=== PATIENT | female | born 1975 | race Caucasian/White ===

== ENCOUNTER 2020-08-01 09:18 | Outpatient (CLI) | payer OTHER, SELFPAY ==
--- NOTE | 2020-08-25 17:51 | WPDHOMESLEEP ---
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 She also stops breathing at night. She never feels rested. She has recently gained weight. She has a difficult time waking up during the morning. She wakes up throughout the night. She frequently snores and is loud enough that others complain about it. She never wakes at night with heartburn, belching or coughing. She never wakened from sleep feeling short of breath. She occasionally has trouble sleeping with a cold. She does not gasp for breath at night. She frequently has breathing problems at night observed by others. She does not sweat excessively at night or notices her heart pounding or beating irregularly at night. She frequently falls asleep during the day, never involuntarily and never while driving. She does not fall asleep during physical effort. She does not have loss of muscle tone with strong emotion. She occasionally has daytime difficulties due to excessive sleepiness. She does not feel paralyzed on waking or falling asleep and does not have vivid dreamlike scenes upon awakening or falling asleep. She is never a free to go to sleep. She does not have nightmares. She rarely remembers her dreams. She does not have racing thoughts. She rarely feels sad or depressed. She frequently feels anxious. She rarely has muscular tension. She does not notice parts of her body jerking. She does not kick at night and does not have crawling or aching feelings in her legs at night. She denies any kind of leg pain during the night. She does not have morning jaw pain. She does not grind her teeth during sleep. She rarely is bothered by pain during the day. She is not awakened by pain at night, does not wake up feeling stiff in the morning with sore achy muscles and pain in the neck and spine. She has fatigue, memory problems and headaches. She is exhausted all the time. Normal bedtime 930 to 10:30 p.m. falling asleep within 20 minutes. She wakes at most once at night to urinate and is able to return to sleep within a few minutes. Her uses a noise machine at night for his tinnitus, she has adapted to it but this does not help her sleep. On weekends she takes a 3 hour nap occasionally. naps are not refreshing. She is drowsy in the morning for 3 hours or longer. Habits: never smoked tobacco. Caffeine 2 per day. Social drinker at parties maybe 1 or 2 a week on weekends. [facility] Past Medical History Medical History (Updated 08/26/20 @ 13:46 by Orquidea Zhu MD) Abnormal fasting glucose BMI 37.0-37.9, adult Essential (primary) hypertension Hypersomnia Mixed hyperlipidemia Right lateral epicondylitis Surgical History Surgical History Hx of appendectomy 10/2017 Family History Family History Mother Hypertension Patient's mother is in good health Family history of pancreatic disease Father Acute myocardial infarction Grandparent Acute myocardial infarction, Onset Age: 50 Family history of pancreatic cancer Family history of congestive heart failure Social History Social History Smoking status: Never smoker Alcohol intake: current Medications Home Medications Medication Instructions Recorded Confirmed Type alprazolam 0.25 mg tablet 0.25 mg PO TID PRN 02/06/20 07/15/20 History escitalopram oxalate 10 mg tablet 10 mg PO DAILY #90 tablet 02/06/20 07/15/20 Rx fluticasone propionate 50 1 spray NASAL BID ml 02/06/20 07/15/20
[2020-08-26 13:49] VITALS: BMI 36.5
== END 2020-08-01 09:19 | disposition home or self-care (01) ==
LOC: ANHCSM 09:19
PROVIDERS: Family Provider Family Medicine; PCP Family Medicine; Visit Provider Family Medicine
DX: G47.10 Hypersomnia, unspecified (principal); G47.33 Obstructive sleep apnea (adult) (pediatric)
CPT/HCPCS: 95806

== ENCOUNTER → 2020-09-13 01:56 | Outpatient (CLI) | payer OTHER, SELFPAY ==
[2020-09-13 18:53] LABS: SARS-CoV-2 RNA PCR Negative
== END ==
PROVIDERS: PCP Family Medicine; Visit Provider Internal Medicine Critical Care Medicine
DX: R68.89 Other general symptoms and signs (principal); Z20.822 Contact with and (suspected) exposure to COVID-19
CPT/HCPCS: C9803; U0003; U0005

== ENCOUNTER 2020-09-16 09:09 | Outpatient (CLI) | payer OTHER, SELFPAY ==
--- NOTE | 2020-10-03 19:39 | WPDSLEEPSTUD ---
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 She never feels rested. She has recently gained weight. She has a difficult time waking up during the morning. She wakes up throughout the night. She frequently snores and is loud enough that others complain about it. She never wakes at night with heartburn, belching or coughing. She never wakened from sleep feeling short of breath. She occasionally has trouble sleeping with a cold. She does not gasp for breath at night. She frequently has breathing problems at night observed by others. She does not sweat excessively at night or notices her heart pounding or beating irregularly at night. She frequently falls asleep during the day, never involuntarily and never while driving. She does not fall asleep during physical effort. She does not have loss of muscle tone with strong emotion. She occasionally has daytime difficulties due to excessive sleepiness. She does not feel paralyzed on waking or falling asleep and does not have vivid dreamlike scenes upon awakening or falling asleep. She is never a free to go to sleep. She does not have nightmares. She rarely remembers her dreams. She does not have racing thoughts. She rarely feels sad or depressed. She frequently feels anxious. She rarely has muscular tension. She does not notice parts of her body jerking. She does not kick at night and does not have crawling or aching feelings in her legs at night. She denies any kind of leg pain during the night. She does not have morning jaw pain. She does not grind her teeth during sleep. She rarely is bothered by pain during the day. She is not awakened by pain at night, does not wake up feeling stiff in the morning with sore achy muscles and pain in the neck and spine. She has fatigue, memory problems and headaches. She is exhausted all the time. Normal bedtime 930 to 10:30 p.m. falling asleep within 20 minutes. She wakes at most once at night to urinate and is able to return to sleep within a few minutes. Her uses a noise machine at night for his tinnitus, she has adapted to it but this does not help her sleep. On weekends she takes a 3 hour nap occasionally. naps are not refreshing. She is drowsy in the morning for 3 hours or longer. Habits: never smoked tobacco. Caffeine 2 per day. Social drinker at parties maybe 1 or 2 a week on weekends. [facility] Past Medical History Medical History (Updated 08/26/20 @ 17:41 by Alexandre Wong MD) Abnormal fasting glucose BMI 37.0-37.9, adult Essential (primary) hypertension Hypersomnia Mixed hyperlipidemia Right lateral epicondylitis Surgical History Surgical History Hx of appendectomy 10/2017 Family History Family History Mother Hypertension Patient's mother is in good health Family history of pancreatic disease Father Acute myocardial infarction Grandparent Acute myocardial infarction, Onset Age: 50 Family history of pancreatic cancer Family history of congestive heart failure Social History Social History Smoking status: Never smoker Alcohol intake: current Medications Home Medications Medication Instructions Recorded Confirmed Type alprazolam 0.25 mg tablet 0.25 mg PO TID PRN 02/06/20 07/15/20 History escitalopram oxalate 10 mg tablet 10 mg PO NADJA
[2020-10-03 20:44] VITALS: BMI 36.5
== END 2020-09-16 09:10 | disposition home or self-care (01) ==
LOC: ANHCSM 09:09
PROVIDERS: PCP Family Medicine; Visit Provider Family Medicine
DX: G47.33 Obstructive sleep apnea (adult) (pediatric) (principal)
CPT/HCPCS: 95811

== ENCOUNTER 2020-11-12 07:41 | Outpatient (CLI) | payer OTHER, SELFPAY ==
--- NOTE | ~2020-11-12 | MM_ITS ---
EXAMINATION: MM screening emmanuel BI w dominic HISTORY: Screening mammogram TECHNIQUE: Craniocaudal and mediolateral oblique 3-D tomosynthesis images were obtained and synthetic 2-D images were generated. CAD analysis was submitted and interpreted. COMPARISON: 08/11/2012 BREAST PARENCHYMAL COMPOSITION: The breasts are heterogeneously dense, which may obscure small masses . FINDINGS: There is no evidence of suspicious mass, calcification, or architectural distortion to sugg est malignancy in either breast. There has been no suspicious interval change. IMPRESSION: 1. No mammographic evidence of malignancy. 2. Recommend routine screening mammography in one year. BI-RADS Category 1: Negative Reviewed, dictated and finalized at location A.
== END 2020-11-12 07:42 | disposition home or self-care (01) ==
LOC: ANHIMG 07:43
PROVIDERS: PCP Family Medicine; Visit Provider Student in an Organized Health Care Education/Training Program
DX: Z12.31 Encounter for screening mammogram for malignant neoplasm of breast (principal)
CPT/HCPCS: 77063; 77067

== ENCOUNTER 2021-02-11 16:00 | Outpatient (RCR) | payer OTHER, SELFPAY ==
--- NOTE | 2021-01-12 09:42 | PTOPEVAL ---
PHYSICAL THERAPY EVALUATION Thank you for referring Jolene Shetty to [facility].? Jolene was evaluated for the dx of right shoulder pain/impingement. The patient is scheduled to be seen for therapy?2 x/week for 4 weeks. Please review, sign, date and return this plan of care SALVADOR. I agree with and certify that the following plan of care is medically necessary. Referring Physician Date Attending Provider: Gilberto Duncan MD *PT Outpatient Evaluation Start: 01/12/21 08:32 Freq: Status: Active Protocol: Document 01/12/21 08:32 MLV (Rec: 01/12/21 09:40 MLV [id number]) Therapy Assessment Status Assessment Status Evaluation Evaluation Information Problem Diagnosis right shoulder pain/ impingement Onset 1 year Cause none Additional Evaluation Detail The patient has had right shoulder pain that began years ago and has been off and on, without injury. The pain has gotten worse, affecting lifestyle tasks in the last year. 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 The patient does yoga, with pain during some tasks. The patient does house and yard work when off. The patient has a decreased sleep pattern due to shoulder pain. The patient wants to decrease pain for sleep, lifting/carrying tasks. 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 Needs elbow surgery per the MD and the patient is considering having it worked on this fall. Diagnostic Tests X-Rays For This Problem Yes Previous Treatments Previous Treatments For This Problem no PT for anything; had an injection of the shoulder recently Pain Assessment Timing of Pain Assessment Timing of Pain Assessment Assessment Pain Scale Pain Scale Used Numeric (1 - 10) Self Report Pain Assessment Right Shoulder(s) Reported Pain Level 2 Pain Description Burning,Shooting Pain Frequency Acute Other Pain Description 5-6 to sleep [facility] [place]
--- NOTE | 2021-02-11 16:59 | PTOPEVAL ---
PHYSICAL THERAPY DISCHARGE Thank you for referring Jolene Shetty to [facility].? The patient has completed 6 visits for the dx of right shoulder pain/impingement. Goals are met. DC PT. Please review, sign, date and return this plan of care SALVADOR. I agree with and certify that the following plan of care. Referring Physician Date Attending Provider: Gilberto Duncan MD *PT Outpatient Discharge Start: 01/12/21 08:32 Freq: Status: Active Protocol: Document 02/11/21 16:12 MLV (Rec: 02/11/21 16:38 MLV [id number]) Therapy Assessment Status Assessment Status Assessment Status Discharge Evaluation Information Problem Diagnosis right shoulder pain/ impingement Onset 1 year Cause none Additional Evaluation Detail The patient feels she is about 95% better and feels she can manage any symptoms through her exercises and posturing. The patient is sleeping w/o pain and can lift w/o limits. The patient is using her posture techniques for when she is at a computer and she can feel an improvement Pain Assessment Timing of Pain Assessment Timing of Pain Assessment Assessment Pain Scale Pain Scale Used Numeric (1 - 10) Self Report Pain Assessment Right Shoulder(s) Reported Pain Level 0 Other Pain Description 0 with exercises/stretching Pain Score Pain Score 0: Self Report Interventions Used Pain Relief Interventions Used By Exercise Patient Other Alleviating Interventions ibuprofen prn but infrequently needed Upper Extremity Range of Motion General Upper Extremity Range of Motion Reason Not Measured WNL/Left,WNL/Right Gross Upper Extremity Range of Motion able to reach behind her back Comments to hook her bra w/o any discomfort Upper Extremity Muscle Strength Testing General Upper Extremity Strength Reason Not Measured WNL/Left,WNL/Right Gross Upper Extremity Strength Comments no pain with testing Posture Posture Sitting Position Posture Evaluation View all Head/C-Spine Posture Excess Extension,Forward Head Thoracic Spine Posture Neutral Lumbar Spine Posture Neutral Shoulder Posture Neutral Scapula Posture (L) Neutral,(R) Neutral Arm Posture (L) Neutral,(R) Neutral Additional Posture Comments corrects posture w/o cueing Palpation Assessment Palpation
== END 2021-02-12 11:58 | disposition home or self-care (01) ==
LOC: ANHPT 16:00
PROVIDERS: PCP Family Medicine; Visit Provider Orthopaedic Surgery
DX: M25.511 Pain in right shoulder (principal); G89.29 Other chronic pain
CPT/HCPCS: 97014; 97110; 97140; 97162; G0283

== ENCOUNTER 2021-05-20 07:38 | Outpatient (CLI) | payer OTHER, SELFPAY ==
--- NOTE | 2021-05-20 08:00 | ECG_ITS ---
Measurements Intervals [place] Rate: 66 P: 31 NH: 174 QRS: -29 QRSD: 100 T: 105 QT: 413 QTc: 434 Interpretive Statements SINUS RHYTHM POSSIBLE LEFT ATRIAL ENLARGEMENT POOR R WAVE PROGRESSION, ANTERIOR LEADS INFERIOR INFARCT, AGE INDETERMINATE ST-T WAVE ABNORMALITY IN HIGH LATERAL LEADS- CONSIDER ISCHEMIA ABNORMAL ECG Electronically Signed On 05-20-2021 8:20:22 MINE DEPUTY by Cb Blackwell D.O.
[2021-05-20 08:32] LABS: Anion Gap 9 mmol/L (8-16); Blood Urea Nitrogen 13 mg/dL (7-17); Calcium 9.5 mg/dL (8.4-10.2); Carbon Dioxide 30 mmol/L (22-30); Chloride 100 mmol/L (98-107); Estimated Glomerular Filt Rate > 60; Glucose 110 mg/dL (65-110); Potassium 4.3 mmol/L (3.4-5.0); Sodium 139 mmol/L (137-145)
== END 2021-05-20 07:39 | disposition home or self-care (01) ==
LOC: ANHSURGERY 07:43
PROVIDERS: Anesthesiology; PCP Family Medicine; Visit Provider Orthopaedic Surgery
DX: Z01.818 Encounter for other preprocedural examination (principal); I10 Essential (primary) hypertension; Z79.899 Other long term (current) drug therapy; R94.31 Abnormal electrocardiogram [ECG] [EKG]
CPT/HCPCS: 36415; 80048; 93005

== ENCOUNTER 2021-05-22 11:00 | Outpatient (CLI) | payer OTHER, SELFPAY ==
--- NOTE | 2021-05-22 11:07 | EST_ITS ---
Patient Info Name: Jolene Shetty Age: 45 years : 1975 Gender: Female Ht: 68 in Wt: 250 lbs BSA: 2.38 m2 Exam Date: 05/22/2021 11:17 AM Exam Location: [facility] Stress Patient Status: Outpatient Admit Date: 05/22/2021 Staff Ordering Physician: Alexandre oWng MD Attending Provider: Alexandre Wong MD Exercise Technologist: Dorinda Smith RDCS Exercise Physician: Cb Blackwell DO Exam Type: CA stress test treadmill Study Info Indications R94.31 - Abnormal electrocardiogram ECG EKG A treadmill exercise stress test was performed. Summary 1. 1. Negative Aubrey exercise stress test for ischemic ST changes by ECG criteria. 2. 2. Mildly reduced functional capacity, achieving 8.9 METs of workload. 3. 3. Baseline hypertension. 4. 4. Appropriate HR response to exercise. 5. 5. Appropriate HR recovery at 1 minute post exercise. 6. 6. No imaging with stress testing. 7. 7. Patient informed of the above results. Protocol: Aubrey Stress ECG Details Stage: REST Duration (min): 4 min : 59 sec Speed (mph): 0.0 Grade (%): 0 HR (bpm): 77 SBP (mmHg): 150 DBP (mmHg): 97 METS: --- Stage: REST Duration (min): 8 min : 53 sec Speed (mph): 0.0 Grade (%): 0 HR (bpm): 94 SBP (mmHg): 150 DBP (mmHg): 97 METS: --- Stage: STAGE 1 Duration (min): 1 min : 0 sec Speed (mph): 1.7 Grade (%): 10 HR (bpm): 119 SBP (mmHg): 150 DBP (mmHg): 97 METS: --- Stage: STAGE 1 Duration (min): 2 min : 0 sec Speed (mph): 1.7 Grade (%): 10 HR (bpm): 126 SBP (mmHg): 150 DBP (mmHg): 97 METS: --- Stage: STAGE 1 Duration (min): 3 min : 0 sec Speed (mph): 1.7 Grade (%): 10 HR (bpm): 133 SBP (mmHg): 181 DBP (mmHg): 96 METS: --- Stage: STAGE 2 Duration (min): 1 min : 0 sec Speed (mph): 2.5 Grade (%): 12 HR (bpm): 145 SBP (mmHg): 181 DBP (mmHg): 96 METS: --- Stage: STAGE 2 Duration (min): 2 min : 0 sec Speed (mph): 2.5 Grade (%): 12 HR (bpm): 154 SBP (mmHg): 194 DBP (mmHg): 96 METS: --- Stage: STAGE 2 Duration (min): 3 min : 0 sec Speed (mph): 2.5 Grade (%): 12 HR (bpm): 163 SBP (mmHg): 194 DBP (mmHg): 96 METS: --- Stage: STAGE 3 Duration (min): 1 min : 0 sec Speed (mph): 3.4 Grade (%): 14 HR (bpm): 171 SBP (mmHg): 207 DBP (mmHg): 99 METS: --- Stage: STAGE 3 Duration (min): 1 min : 0 sec Speed (mph): 3.4 Grade (%): 14 HR (bpm): 171 SBP (mmHg): 207 DBP (mmHg): 99 METS: --- Stage: RECOVERY Duration (min): 0 min : 59 sec Speed (mph): 0.0 Grade (%): 0 HR (bpm): 155 SBP (mmHg): 179 DBP (mmHg): 98 METS: --- Stage: RECOVERY Duration (min): 1 min : 59 sec Speed (mph): 0.0 Grade (%): 0 HR (bpm): 130 SBP (mmHg): 179 DBP (mmHg): 98 METS: --- Stag
== END 2021-05-22 11:01 | disposition home or self-care (01) ==
LOC: ANHCARD 11:02
PROVIDERS: PCP Family Medicine; Visit Provider Family Medicine
DX: R94.31 Abnormal electrocardiogram [ECG] [EKG] (principal)
CPT/HCPCS: 93017

== ENCOUNTER 2021-05-25 00:16 | Day surgery (SDC) | payer OTHER, SELFPAY ==
[2021-05-18 13:49] VITALS: BMI 38.4
--- NOTE | 2021-05-18 14:22 | PC.NURSE ---
Report to the Outpatient Waiting Room, entrance under the green pavilion located off [facility], at time 0930 on date 05-25-21. OR Time: 1130. - You and your visitor will be asked a series of questions to screen for COVID 19 for your protection. - A mask is required within the hospital. - Only one visitor is allowed at this time. Patient visitors will be guided where to wait when not with patient. Preoperative COVID Testing Requirements: No COVID Test needed if: (proof is required; if not received patient will have Rapid Test prior to entry) - Patient has received COVID Vaccine at least 14 days prior to procedure date or - Patient has positive COVID test result within last 90 days of surgery date. COVID Test needed if above criteria is not met If not COVID vaccinated a COVID test must be conducted within 72 hours of surgery and patient is asked to isolate self from time of testing until procedure. You will go to the [facility] for your COVID testing. The [facility] site is located at the corner of [address] [facility]. You will only be called if COVID results are positive and your surgeon may reschedule your elective surgery date. Patients may have clear liquids (water, carbonated beverages, clear teas, apple juice) until 3 hours prior to surgery with a maximum of 20 ounces. 0830 - No food from midnight until time of surgery - Infants may have breast milk until 4 hours before surgery, formula 6 hours prior to surgery. - Children will be allowed to drink immediately following surgery. If applicable, please bring a bottle or sippy cup to assist with drinking. Juice, water, soda, and popsicles are readily available. For infants on formula, please bring formula the day of surgery. Pacifiers are allowed. Take the following medications with a SIP of water the morning of surgery: bupropion HCL, tylenol if needed, xanax if needed Medications to discontinue per physician: vitamins and supplements, ibuprofen per Dr. Duncan Date to take last dose 05-22-21 for vitamins and supplements Please no make-up, nail burkinan, hairspray, perfume, deodorant, or body powder the day of surgery. No jewelry (including any body piercings) or valuables the day of surgery, leave them at home. Please take a shower or bath the night before, or the morning of, surgery with an antibacterial soap. Wear comfortable, loose fitting clothing. Children are encouraged to wear pajamas. - Jewelry must be removed prior to entering the operating room. Rings and piercings that are not removed may be cut off. - The hospital will not accept responsibility for valuables. - Please leave all valuables, including medications, at home the day of surgery. If you are going home after surgery, a licensed emt driver must drive you home. - NO public transportation without another adult. - We recommend that an adult stay with you for 24 hours following discharge. - We also recommend that you do not drive, make important decision, drink alcoholic beverages, or take any drugs that were not prescribed by your health care provider for at least 24 hours after your discharge time. For Pediatric surgeries, we recommend two adults accompany the child home (only one inside the building at this time). One visitor may be present with you the day of surgery Follow any additional instructions given to you from your surgeon. Telephone instructions given to Jolene Shetty and asked if any additional questions and then verbalized understanding. Patient advised to call surgeon office or pre surgery nurse liaison [phone] if any additional questions.
[2021-05-25] VITALS (7 sets, daily range): BP systolic 118–137; BP diastolic 75–112; PULSE 64–79; RESP 12–20; TEMP 36–37; O2SAT 95–100
--- NOTE | 2021-05-25 09:59 | WPDHPUPDATE1 ---
History and Physical Update Update Date/Time: 05/25/21 09:59 History and Physical has been reviewed, including an updated exam of the patient. There are NO changes in the patient's condition. Risks, benefits, and alternatives have been discussed and questions answered. Patient agrees to proceed with procedure.
[2021-05-25] MEDS: KETOROLAC 15 MG/ML VIAL (*BKC) IV PUSH (10:01)
[2021-05-25] MEDS: LACTATED RINGERS 1,000 ML 30 ML IV CONT (10:01)
[2021-05-25] MEDS: ACETAMINOPHEN 500 MG TABLET 1000 MG PO (10:02)
--- NOTE | 2021-05-25 10:10 | WPDANESEPPF ---
Anes - Initial Pre Proc Eval Procedure: Operation Date: 05/25/21 11:30 Proposed Procedures p Right Lateral Epicondyle Debridement - Gilberto Duncan MD Date/Time: 05/25/21 10:10 Surgeon: Gilberto Duncan MD Pre Op Diagnosis: right lateral epicondylitis Patient Data Age: 45 Gender: F Height: 1.75 m Weight: 115.3 kg Last Vital Signs Temp 37.0 C 05/25/21 09:33 Pulse 69 05/25/21 09:33 Resp 18 05/25/21 09:33 BP 137/112 H 05/25/21 09:33 Pulse Ox 100 05/25/21 09:33 Allergies Allergy/AdvReac Type Severity Reaction Status Date / Time Penicillins Allergy Intermediate Hives Verified 05/25/21 10:10 Home Medications Medication Instructions Recorded Confirmed Type fluticasone propionate 50 1 spray NASAL BID PRN ml 02/06/20 05/25/21 History mcg/actuation nasal spray,suspension spironolactone 50 mg tablet 50 mg PO BID #180 tablet 12/11/20 05/25/21 Rx alprazolam 0.25 mg tablet 0.25 mg PO TID PRN #90 tablet 02/12/21 05/25/21 Rx bupropion HCl 150 mg 24 hr tablet, 150 mg PO QAM #90 tablet 04/28/21 05/25/21 Rx extended release acetaminophen [Tylenol Arthritis] 650 mg PO Q8H PRN 05/18/21 05/25/21 History amlodipine 2.5 mg PO HS 05/18/21 05/25/21 History cholecalciferol (vitamin D3) 25 mcg PO DAILY 05/18/21 05/25/21 History [Vitamin D3] escitalopram oxalate [Lexapro] 10 mg PO HS 05/18/21 05/25/21 History xvcbpneihuip-Fi-wgkz-minerals 1 tablet PO DAILY 05/18/21 05/25/21 History [Women's One Daily] Patient hx anesthesia problems: none Family hx anesthesia problems: other (mother heart issues) Results Review: All pre-operative results and documents have been reviewed as part of the pre-operative evaluation. [facility] Past Medical History Medical History Abnormal EKG (05/20/21) inferior Q-waves with poor R-wave progression and ST T-wave changes laterally on the EKG 05/20/2021 with family history of father with RI at 46 Abnormal fasting glucose BMI 37.0-37.9, adult BMI 39.0-39.9,adult Chronic depression CPAP (continuous positive airway pressure) dependence Essential (primary) hypertension Hypersomnia Medial epicondylitis, left elbow Mixed hyperlipidemia Pain in right shoulder Right lateral epicondylitis Skin tags, multiple acquired UTI (urinary tract infection) Surgical History Surgical History Hx of appendectomy 10/2017 Family History Family History Mother Hypertension Patient's mother is in good health Family history of pancreatic disease Father Acute myocardial infarction Grandparent Acute myocardial infarction, Onset Age: 50 Family history of pancreatic cancer Family history of congestive heart failure Social History Social History Smoking status: Never smoker Second hand tobacco smoke exposure: No Alcohol intake: current Drinks per week: 3 Alcohol use details: selzers/beer Substance use: never Substance use type: does not use Living arrangements: with family Spiritual care concerns: No Anes - Eval Final PreProcedure Day of Procedure 05/25/21 10:10 Patient weight: obese Heart: regular rate and rhythm Lungs: clear to auscultation Airway: Mallampati scale class II Neurological: alert and oriented Last oral intake: >/= 8 hours ASA classification: III Emergent: no Anesthetic plan: proceed Anesthesia type and monitoring: general LMA and standard monitoring Results Review: All pre-operative results and documents have been reviewed as part of the pre-operative evaluation. Informed Consent: The patient's anesthetic plan and its attendant risks and benefits were discussed with the patient/family/POA. Questions were solicited and answers provided to the satisfaction of the patient/family/POA.
[2021-05-25] MEDS: ceFAZolin 2 GM/D5W 50 ML 2 GM/50 ML BAG IVPB (10:32)
--- NOTE | 2021-05-25 11:21 | P.OP_ITS ---
Procedure Note - Detailed Date of Procedure 05/25/21 Pre-op Diagnosis right lateral epicondylitis Post-op Diagnosis same Procedure Performed Right elbow lateral epicondyle common extensor origin debridement with partial epicondylectomy Surgeon Gilberto Duncan MD Cooling Room Attendant Fawn Reilly Anesthesia general Description of Procedure The patient was identified and proper site identified. She was taken to the operating room transferred to the or table placing her supine taking care to pad her torso and extremities. After general anesthetic induction and intubation, nonsterile tourniquet placed high on the right arm. Right upper extremity was prepped and draped usual sterile fashion. Several cc of 1% lidocaine and epinephrine solution was infiltrated into the subcutaneous tissue along the tendinous attachment of the common extensor origin right elbow. Extremity was exsanguinated tourniquet was inflated to 250 millimeters of mercury remaining up for about 22 minutes. Longitudinal incision was made over the tendinous origin. Subcutaneous tissue was sharply dissected full-thickness down to the forearm fascia. This was released over the tendon to allow for access of the lateral epicondyle. The tendon was elevated off the lateral epicondyle an inverted T- fashion and then the degenerative tissue rim removed from within it using the edge of the scalpel. Prominent lateral epicondyle was also removed with a rongeur. The wound was irrigated with sterile saline. Tendon edges reapproximated with 3-0 Monocryl suture as the deeper layers of the subcu. Skin reapproximated with three 0 V lock and tissue adhesive. Sterile dressing was applied. Tourniquet was released. She tolerated the procedure well. She was awakened, extubated taken to recovery area in stable condition. There were no known intraoperative complications. Estimated blood loss was negligible. She r eceived perioperative antibiotics. Estimated Blood Loss 1 Tourniquet Time 22 Drains No Packing No Pathology none sent Complications No immediate complications Condition stable Disposition PACU
[2021-05-25] MEDS: fentaNYL CITRATE INJ (*CRX) 100 MCG/2 ML VIAL 25 MCG IV PUSH ×2 (11:50→12:00)
[2021-05-25] MEDS: oxyCODONE HCL (*CRX) 5 MG TAB IR PO (12:48)
== END 2021-05-25 13:45 | disposition home or self-care (01) ==
PROVIDERS: PCP Family Medicine; Visit Provider Orthopaedic Surgery
PROC: (CPT 24110; principal; 2021-05-25 11:30)
DX: M77.11 Lateral epicondylitis, right elbow (principal); I10 Essential (primary) hypertension; E78.2 Mixed hyperlipidemia; F32.9 Major depressive disorder, single episode, unspecified; E66.9 Obesity, unspecified; Z68.37 Body mass index [BMI] 37.0-37.9, adult
CPT/HCPCS: 24358; 36415; 80048; 93005; A4565; A9270; J0690; J1100; J1885; J2250; J2270; J2405; J2704; J3010; J7120

== ENCOUNTER 2021-12-28 10:17 | Outpatient (CLI) | payer OTHER, SELFPAY ==
--- NOTE | ~2021-12-28 | MM_ITS ---
EXAMINATION: MM screening [facility] BI w dominic HISTORY: Screening TECHNIQUE: Craniocaudal and mediolateral oblique 3-D tomosynthesis images were obtained and synthetic 2-D images were generated. CAD analysis was submitted and interpreted. COMPARISON: Comparison to multiple prior studies sequentially, with oldest reviewed study dated 08/21. BREAST PARENCHYMAL COMPOSITION: There are scattered areas of fibroglandular density. FINDINGS: There is no evidence of suspicious mass, calcification, or architectural distortion to sugg est malignancy in either breast. There has been no suspicious interval change. IMPRESSION: 1. No mammographic evidence of malignancy. 2. Recommend routine screening mammography in one year. BI-RADS Category 1: Negative Reviewed, dictated and finalized at location A.
== END 2021-12-28 10:18 | disposition home or self-care (01) ==
LOC: ANHIMG 10:19
PROVIDERS: PCP Family Medicine; Visit Provider Obstetrics & Gynecology
DX: Z12.31 Encounter for screening mammogram for malignant neoplasm of breast (principal)
CPT/HCPCS: 77063; 77067

== ENCOUNTER 2023-01-03 07:14 | Outpatient (CLI) | payer OTHER, SELFPAY ==
--- NOTE | ~2023-01-03 | MM_ITS ---
EXAMINATION: MM screening [facility] BI w dominic HISTORY: Screening mammogram TECHNIQUE: Craniocaudal and mediolateral oblique 3-D tomosynthesis images were obtained and synthetic 2-D images were generated. CAD analysis was submitted and interpreted. COMPARISON: 12/28/2021, 11/12/2020, 08/21/2012 BREAST PARENCHYMAL COMPOSITION: The breasts are heterogeneously dense, which may obscure small masses . FINDINGS: No suspicious mass, calcification, or architectural distortion are identified in either triston ast to suggest malignancy. There has been no suspicious interval change. IMPRESSION: 1. No mammographic evidence of malignancy. 2. Recommend routine screening mammography in one year. BI-RADS Category 1: Negative Reviewed, dictated and finalized at location A.
== END 2023-01-03 07:15 | disposition home or self-care (01) ==
LOC: ANHIMG 07:16
PROVIDERS: PCP Family Medicine; Visit Provider Obstetrics & Gynecology
DX: Z12.31 Encounter for screening mammogram for malignant neoplasm of breast (principal)
CPT/HCPCS: 77063; 77067

== ENCOUNTER 2024-01-06 07:46 | Outpatient (CLI) | payer OTHER, SELFPAY ==
--- NOTE | ~2024-01-06 | MM_ITS ---
EXAMINATION: MM screening [facility] BI w dominic HISTORY: Screening mammogram TECHNIQUE: Craniocaudal and mediolateral oblique 3-D tomosynthesis images were obtained and synthetic 2-D images were generated. CAD analysis was submitted and interpreted. COMPARISON: 01/03/2023, 12/28/2021, 11/12/2020 BREAST PARENCHYMAL COMPOSITION:Not Dense. There are scattered areas of fibroglandular density. FINDINGS: There is an increasing 1.3 cm lower, inner left breast mass. No suspicious interval change of the right breast. IMPRESSION: Increasing 1.3 cm lower, inner left breast mass. Spot compression views and ultrasound are recommend ed for further evaluation. BI-RADS Category 0: Incomplete: Needs additional imaging evaluation. Reviewed, dictated and finalized at location . IMPRESSION: Increasing 1.3 cm lower, inner left breast mass. Spot compression views and ul trasound are recommended for further evaluation. BI-RADS Category 0: Incomplete: Needs additional imaging evaluation.
== END 2024-01-06 07:47 | disposition home or self-care (01) ==
LOC: ANHIMG 07:48
PROVIDERS: PCP Family Medicine; Visit Provider Obstetrics & Gynecology
DX: Z12.31 Encounter for screening mammogram for malignant neoplasm of breast (principal); R92.8 Other abnormal and inconclusive findings on diagnostic imaging of breast
CPT/HCPCS: 77063; 77067

== ENCOUNTER 2024-01-19 11:55 | Outpatient (CLI) | payer OTHER, SELFPAY ==
--- NOTE | ~2024-01-19 | MMUS_ITS ---
EXAMINATION: MM diagnostic [facility] LT w dominic, US breast LT limited HISTORY: Follow-up left breast mass TECHNIQUE: Additional 3-D tomosynthesis images of the left breast were performed and synthetic 2-D im ages were generated. CAD analysis was submitted and interpreted. High resolution Limited left breast ultrasound was performed. COMPARISON: Comparison to multiple prior studies sequentially, with oldest reviewed study dated 11/12. BREAST PARENCHYMAL COMPOSITION: Dense: The breasts are heterogeneously dense, which may obscure small masses FINDINGS: MAMMOGRAPHIC FINDINGS: There is a mass in the lower central aspect of the left breast with layering milk of calcium, consist ent with benign fibrocystic disease. There are no suspicious calcifications or architectural distorti on. ULTRASOUND: Limited left breast ultrasound: At 7:00, 6 cm from the nipple there is a minimally complicated cyst m easuring 1.1 cm, corresponding to the mammographic finding. No sonographic evidence for malignancy. IMPRESSION: 1. No evidence for malignancy in the left breast. Benign finding. 2. Routine yearly screening mammogram and regular clinical breast examination are recommended. BI-RADS CATEGORY 2 - BENIGN FINDINGS Reviewed, dictated and finalized at location B. IMPRESSION: 1. No evidence for malignancy in the left breast. Benign finding. 2. Routine yearly screening mammogram and regular clinical breast examination a re recommended. BI-RADS CATEGORY 2 - BENIGN FINDINGS
== END 2024-01-19 11:56 | disposition home or self-care (01) ==
LOC: ANHIMG 11:56
PROVIDERS: PCP Family Medicine; Visit Provider Obstetrics & Gynecology
DX: N63.20 Unspecified lump in the left breast, unspecified quadrant (principal)
CPT/HCPCS: 76642; 77061; 77065; G0279

== ENCOUNTER 2025-01-09 01:57 | Day surgery (SDC) | payer OTHER, SELFPAY ==
[2024-12-14 15:35] VITALS: BMI 39.5
--- OUTSIDE RECORDS SUMMARY | 2025-01-09 02:01 | XMS_ITS | Clinical Summary ---
Author Organization [facility] Address [address] [place] [address] Care Team Providers Care Coding Clerks Supervisor Name Role Phone Alexandre Wogn MD Primary Care Provider [phone] [facility] [employer],non-owned Affiliates and Associated Physician Practices is amultiple site organization consisting of ambulatory clinics and hospital sitesin [place], [place], [place] and [place]. This disclosure is being madepursuant to the Care Everywhere program and may not contain all information available regarding this patient. Last updated 18.[facility] [employer] Social History Tobacco Use Types Packs/Day Years Used Date Smoking Tobacco: Never Assessed Comments Unknown Sex and Gender Information Value Date Recorded Sex Assigned at Not on file Legal Sex Female 9:07 AM CDT Gender Identity Not on file Sexual Orientation Not on file Plan of Treatment Health Maintenance Due Date Last Done Comments COLOGUARD (AGES 45-75) - COL ON CA SCREENING 1974 COLON MONITORING 1974 COLONOSCOPY - COLON CA SCREENING 1974 CT COLONOGRAPHY - COLON CA SCREENING 1974 Colorectal Cancer Screening 1974 FIT - COLON CA SCREENING 1974 FLEX SIG - COLON CA SCREENING 1974 LIPID TESTING 1974 MAMMOGRAM 1974 HIV SCREENING 1989 HEPATITIS C SCREENING 11/14/1992 DTAP/TDAP/TD VACCINES (1 - Tdap) 1993 HEPATITIS B VACCINE (1 of 3 - 19+ 3-dose series) 1993 PAP SMEAR 11/20/1995 COVID-19 VACCINE (1 - 2023-2 5 season) 2024 DEPRESSION SCREENING 07/04/2024 PNEUMOCOCCAL VACCINE 50+ (1 of 1 - PCV) 2024 ZOSTER VACCINE (1 of 2) 2024 INFLUENZA VACCINE (#1) 2025 HIB VACCINE Aged Out No longer eligi ble based on patient's age to complete this topic HPV VACCINE Aged Out No longer eligi ble based on patient's age to complete this topic MENINGOCOCCAL (Group B) VACC INE SHARED DECISION-MAKING Aged Out No longer eligibl e based on patient's age to complete this topic MENINGOCOCCAL GROUPS A/C/Y/W VACCINE Aged Out No longer eligible b ased on patient's age to complete this topic Insurance [facility] Care Teams Coding Clerks Supervisor Relationship Specialty Start Date End Date Alexandre Wong MD PCP - General 10/13/17
--- OUTSIDE RECORDS SUMMARY | 2025-01-09 02:01 | XMS_ITS | Encounter Summary ---
Author Organization [facility] Address [address] [place] [address] Care Team Providers Care Family Practice Doctor Name Role Phone Alexandre Wong MD Primary Care Provider [phone] Encounter Details Date Type Department Care Team (Late st Contact Info) Description 05/05/2022 Lab Requisition [facility] DermPath Lab [address] [facility], [facility] [place] [id number] Kylie Jamil MD [address] [facility] [address] [place] [address] Social History Tobacco Use Types Packs/Day Years Used Date Smoking Tobacco: Never Assessed Comments Unknown Sex and Gender Information Value Date Recorded Sex Assigned at Not on file Legal Sex Female 9:07 AM CDT Gender Identity Not on file Sexual Orientation Not on file documented as of this encounter Plan of Treatment Not on file documented as of this encounter Procedures Procedure Name Priority Date/Time Associated Diagnosis Comments DERMATOPATHOLOGY Routine 05/04/2022 12:0 0 AM CDT documented in this encounter Results * DERMATOPATHOLOGY (05/04/2022 12:00 AM CDT) Case Report Dermatopathology Report Case: [id number] Authorizing Provider: Kylie Jamil MD Collected: 05/04/2022 12:00 AM Ordering Location: [facility] DermPath Lab Received: 05/05/2022 06:59 AM Pathologist: Ayla Alva MD Specimen: Skin, left eyelid margin 2 4:22 PM CDT DERMATOPATHOLOGY LABORATORY Final Diagnosis Specimen A. 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 The specimen consists of a shave biopsy measuring [id number]. Jar 0. 4:22 PM CDT DERMATOPATHOLOGY LABORATORY Microscopic Description Specimen A. SKIN, left eyelid margin: Within the dermis, there is a space lined by one to several layers of typical epithelial cells that resemble the lining of the normal sweat duct. Additional deeper sections were obtained and reviewed. 4:22 PM CDT DERMATOPATHOLOGY LABORATORY Disclaimer An external and internal positive and negative controls are appropriate for the histochemical, immunohistochemical and immunofluorescence stain(s) in this case (if any), except where stated explicitly. The performance characteristics of the stain(s) cited in this report were developed and its performance characteristic determined by the Dermatopathology Laboratory at [facility], directed by Dr. Cyndy Alva. These tests need not be, and therefore are not, approved by the [place] Food and Drug Administration. The tests are used for clinical purposes. Billing Codes Specimen Charges Stain Charges 49915 1 2 4:22 PM CDT DERMATOPATHOLOGY LABORATORY Embedded Images 4:22 PM CDT DERMATOPATHOLOGY LABORATORY Pathology/Cytolog y TISSUE SPECIMEN FROM SKIN / Unknown 05/04/2022 05/05/2022 6:59 AM CDT us Kylie Jamil MD LAB - PATHOLOGY/CYTOLOGY ORD ERABLES Final Result DERMATOPATHOLOGY LABORATORY [facility] - Department of Dermatology [facility] Medicine [address] [place] [address], [address] [phone] documented in this encounter Visit Diagnoses Not on filedocumented in this encounter Care Teams Family Practice Doctor Relationship Specialty Start Date End Date Alexandre Wong MD PCP - General 10/13/17 documented as of this encounter
[2025-01-09 06:35] VITALS: BP 139/87; PULSE 74; RESP 16; TEMP 36.8; O2SAT 99
[2025-01-09 06:47] VITALS: BMI 39.2
[2025-01-09 06:49] LABS: BEDSIDEPREGUCG Negative (Negative)
[2025-01-09] MEDS: LACTATED RINGERS 1,000 ML 150 ML IV CONT (06:52)
--- NOTE | 2025-01-09 07:17 | P.PNAN_ITS ---
Anes - Initial Pre Proc Eval Procedure: Operation Date: 01/09/25 07:30 Proposed Procedures p Screening Colonoscopy - Petey Best MD Date/Time: 01/09/25 07:17 Surgeon: Petey Best MD Pre Op Diagnosis: screening colon Patient Data Age: 49 Gender: F Height: 1.73 m Weight: 117.1 kg Last Vital Signs Temp 98.2 F 01/09/25 06:35 Pulse 74 01/09/25 06:35 Resp 16 01/09/25 06:35 BP 139/87 01/09/25 06:35 Pulse Ox 99 01/09/25 06:35 O2 Del Method Room Air 01/09/25 06:35 Allergies Allergy/AdvReac Type Severity Reaction Status Date / Time Penicillins Allergy Intermediate Hives Verified 01/09/25 06:40 Home Medications ?Medication ?Instructions ?Recorded ?Confirmed ?Type fluticasone propionate 50 1 spray intranasal BID PRN 02/06/20 12/14/24 History mcg/actuation nasal seasonal allergies spray,suspension acetaminophen 650 mg 650 mg PO Q8H PRN pain 05/18/21 12/14/24 History tablet,extended release fikivzgfljcy-Kk-trvr-minerals 27 1 tablet PO DAILY 05/18/21 01/09/25 History mg-0.4 mg tablet cholecalciferol (vitamin D3) 25 1,000 unit PO DAILY 09/16/21 01/09/25 History mcg (1,000 unit) tablet (Vitamin D3) tirzepatide (weight loss) See Rx Instructions subcut WEEKLY 05/30/24 01/09/25 History amlodipine 10 mg tablet 10 mg PO DAILY #90 tabs 07/24/24 01/09/25 Rx bupropion HCl 150 mg 24 hr tablet, 150 mg PO QAM #90 tabs 09/21/24 01/09/25 Rx extended release (Wellbutrin XL) escitalopram oxalate 10 mg tablet 10 mg PO DAILY #90 tabs 10/16/24 01/09/25 Rx (Lexapro) spironolactone 50 mg tablet 50 mg PO BID #180 tabs 10/16/24 01/09/25 Rx alprazolam 0.25 mg tablet (Xanax) 0.25 mg PO TID PRN anxiety #90 tabs 11/29/24 12/14/24 Rx Laboratory Tests 01/09/25 06:46 POC Urine HCG, Qual Negative (Negative) Patient hx anesthesia problems: none Family hx anesthesia problems: none Results Review: All pre-operative results and documents have been reviewed as part of the pre- operative evaluation. [facility] Past Medical History Medical History BMI 36.0-36.9,adult Screening for colon cancer Breast mass, left (01/06/24) 1.3 cm mass left breast on mammogram 01/06/2024. Diagnostic mammogram 01/19/2024 with breast ultrasound with fibrocystic changes with no evidence of malignancy. Urinary urgency NAYELI on CPAP Body mass index (BMI) of 40.1 to 44.9 in adult Acute bronchitis COVID-19 (~07/01/22) 2nd episode Breast cancer screening Normal mammogram 01/03/2023.1.3 cm mass inner left breast on 01/06/2024. Diagnostic mammogram and breast ultrasound 01/19/2024 with no evidence of malignancy. Acute non-recurrent maxillary sinusitis COVID-19 (~05/2021) COVID illness after vaccination May, BMI 38.0-38.9,adult Abnormal EKG (05/20/21) inferior Q-waves with poor R-wave progression and ST T-wave changes laterally on the EKG 05/20/2021 with family history of father with [place] at 46 BMI 39.0-39.9,adult Chronic depression CPAP (continuous positive airway pressure) dependence Medial epicondylitis, left elbow Pain in right shoulder Skin tags, multiple acquired UTI (urinary tract infection) Hypersomnia BMI 37.0-37.9, adult Mixed hyperlipidemia Total cholesterol 175, triglycerides 100, HDL 36 and LDL 118 on 01/08/2022. Abnormal fasting glucose Fasting glucose 109 with hemoglobin A1c 5.2 on 01/08/2022. Essential (primary) hypertension Surgical History Surgical History Hx of appendectomy 10/2017 Right lateral epicondylitis Surgical debridement May 25, 2021 Family History Family History Mother Hypertension Patient's mother is in good health Family history of pancreatic disease Father Acute myocardial infarction Grandparent Acute myocardial infarction, Onset Age: 50 Family history of pancreatic cancer Family history of congestive heart failure Social History Social History Smoking status: Never smoker Second hand tobacco smoke exposure: No Alcohol intake: current Drinks per week: 3 Alcohol use details: selzers/beer Substance use: never Substance use type: does not use Living arrangements: with family Spiritual care concerns: No Anes - Eval Final PreProcedure Day of Procedure 01/09/25 07:17 Patient weight: obese Lungs: normal air movement Airway: Mallampati scale class II Neurological: alert and oriented Last oral intake: >/= 8 hours ASA classification: III Emergent: no Anesthetic plan: proceed Anesthesia type and monitoring: general GIVS and standard monitoring Results Review: All pre-operative results and documents have been reviewed as part of the pre- operative evaluation. HTN, NAYELI on CPAP. Informed Consent: The patient's anesthetic plan and its attendant risks and benefits were discussed with the patient/family/POA. Questions were solicited and answers provided to the satisfaction of the patient/family/POA.
--- NOTE | 2025-01-09 07:33 | PM.IMHP ---
H&P: HPI History of Present Illness Date/Time: 01/09/25 07:33 Chief Complaint: screening colonoscopy Narrative: This is the patient's first colonoscopy. There are no GI symptoms and there is no family history of colorectal cancer. Review of Systems Review of Systems: All systems reviewed & are unremarkable except as noted in HPI and below [facility] Past Medical History Medical History BMI 36.0-36.9,adult Screening for colon cancer Breast mass, left (01/06/24) 1.3 cm mass left breast on mammogram 01/06/2024. Diagnostic mammogram 01/19/2024 with breast ultrasound with fibrocystic changes with no evidence of malignancy. Urinary urgency NAYELI on CPAP Body mass index (BMI) of 40.1 to 44.9 in adult Acute bronchitis COVID-19 (~07/01/22) 2nd episode Breast cancer screening Normal mammogram 01/03/2023.1.3 cm mass inner left breast on 01/06/2024. Diagnostic mammogram and breast ultrasound 01/19/2024 with no evidence of malignancy. Acute non-recurrent maxillary sinusitis COVID-19 (~05/2021) COVID illness after vaccination May, BMI 38.0-38.9,adult Abnormal EKG (05/20/21) inferior Q-waves with poor R-wave progression and ST T-wave changes laterally on the EKG 05/20/2021 with family history of father with [place] at 46 BMI 39.0-39.9,adult Chronic depression CPAP (continuous positive airway pressure) dependence Medial epicondylitis, left elbow Pain in right shoulder Skin tags, multiple acquired UTI (urinary tract infection) Hypersomnia BMI 37.0-37.9, adult Mixed hyperlipidemia Total cholesterol 175, triglycerides 100, HDL 36 and LDL 118 on 01/08/2022. Abnormal fasting glucose Fasting glucose 109 with hemoglobin A1c 5.2 on 01/08/2022. Essential (primary) hypertension Surgical History Surgical History Hx of appendectomy 10/2017 Right lateral epicondylitis Surgical debridement May 25, 2021 Family History Family History Mother Hypertension Patient's mother is in good health Family history of pancreatic disease Father Acute myocardial infarction Grandparent Acute myocardial infarction, Onset Age: 50 Family history of pancreatic cancer Family history of congestive heart failure Social History Social History Smoking status: Never smoker Second hand tobacco smoke exposure: No Alcohol intake: current Drinks per week: 3 Alcohol use details: selzers/beer Substance use: never Substance use type: does not use Living arrangements: with family Spiritual care concerns: No Meds Home Medications and Allergies Home Medications ?Medication ?Instructions ?Recorded ?Confirmed ?Type fluticasone propionate 50 1 spray intranasal BID PRN 02/06/20 12/14/24 History mcg/actuation nasal seasonal allergies spray,suspension acetaminophen 650 mg 650 mg PO Q8H PRN pain 05/18/21 12/14/24 History tablet,extended release scjrzplzdcnf-La-bcqk-minerals 27 1 tablet PO DAILY 05/18/21 01/09/25 History mg-0.4 mg tablet cholecalciferol (vitamin D3) 25 1,000 unit PO DAILY 09/16/21 01/09/25 History mcg (1,000 unit) tablet (Vitamin D3) tirzepatide (weight loss) See Rx Instructions subcut WEEKLY 05/30/24 01/09/25 History amlodipine 10 mg tablet 10 mg PO DAILY #90 tabs 07/24/24 01/09/25 Rx bupropion HCl 150 mg 24 hr tablet, 150 mg PO QAM #90 tabs 09/21/24 01/09/25 Rx extended release (Wellbutrin XL) escitalopram oxalate 10 mg tablet 10 mg PO DAILY #90 tabs 10/16/24 01/09/25 Rx (Lexapro) spironolactone 50 mg tablet 50 mg PO BID #180 tabs 10/16/24 01/09/25 Rx alprazolam 0.25 mg tablet (Xanax) 0.25 mg PO TID PRN anxiety #90 tabs 11/29/24 12/14/24 Rx Allergies Allergy/AdvReac Type Severity Reaction Status Date / Time Penicillins Allergy Intermediate Hives Verified 01/09/25 06:40 Vital Signs Vital Signs - 24 hr 01/09/25 06:35 Temperature 98.2 F Pulse Rate 74 Respiratory Rate 16 Blood Pressure 139/87 Pulse Oximetry 99 Oxygen Delivery Room Air Exam Const: General: cooperative and healthy appearing Resp: Effort & Inspection: normal respiratory effort and able to speak in complete sentences Auscultation: clear to auscultation bilaterally Cardio: Rate: regular rate Rhythm: regular rhythm GI: Inspection: normal to inspection GI Palp: No No hepatosplenomegaly present Auscultation: normal bowel sounds Rectal Exam: deferred Skin: General skin exam: normal color Psych: Appearance: grossly normal Mental Status: mental status grossly normal Assessment and Plan Assessment and plan (1) Screening for colon cancer: Code(s): Z12.11 - Encounter for screening for malignant neoplasm of colon Status: Acute Assessment and Plan: The patient is deemed a good candidate for the procedure. Consent signed. Will proceed.
[2025-01-09 07:43] VITALS: BP 110/73; PULSE 79; RESP 20; O2SAT 97
[2025-01-09 07:53] VITALS: BP 124/81; PULSE 66; RESP 21; O2SAT 97
[2025-01-09 08:03] VITALS: BP 120/78; PULSE 62; RESP 18; O2SAT 99
== END 2025-01-09 08:11 | disposition home or self-care (01) ==
PROVIDERS: Anesthesiology; PCP Family Medicine; Referring Provider Nurse Practitioner Family; Visit Provider Internal Medicine Gastroenterology
PROC: 0DJD8ZZ Inspection of Lower Intestinal Tract, Via Natural or Artificial Opening Endoscopic (ICD-10-PCS; CPT 45378; principal; 2025-01-09 07:30)
DX: Z12.11 Encounter for screening for malignant neoplasm of colon (principal); R39.15 Urgency of urination; F32.A Depression, unspecified; G47.10 Hypersomnia, unspecified; E78.2 Mixed hyperlipidemia; I10 Essential (primary) hypertension; G47.33 Obstructive sleep apnea (adult) (pediatric); E66.9 Obesity, unspecified; Z68.39 Body mass index [BMI] 39.0-39.9, adult; Z79.85 Long-term (current) use of injectable non-insulin antidiabetic drugs; Z99.89 Dependence on other enabling machines and devices; Z98.890 Other specified postprocedural states; Z80.0 Family history of malignant neoplasm of digestive organs; Z82.49 Family history of ischemic heart disease and other diseases of the circulatory system
CPT/HCPCS: 45378; J2003; J2704; J7120

== ENCOUNTER 2025-04-01 15:42 | Outpatient (CLI) | payer OTHER, SELFPAY ==
--- NOTE | ~2025-04-01 | MM_ITS ---
EXAMINATION: MM screening [facility] BI [facility] HISTORY: Screening TECHNIQUE: Craniocaudal and mediolateral oblique 3-D tomosynthesis images were obtained and synthetic 2-D images were generated. CAD analysis was submitted and interpreted. COMPARISON: Comparison to multiple prior studies sequentially, with oldest reviewed study dated 11/12/2020. BREAST PARENCHYMAL COMPOSITION: Not dense: There are scattered areas of fibroglandular density. FINDINGS: Stable benign mass lower inner quadrant of the left breast, posterior third. There is no evidence of suspicious mass, calcification, or architectural distortion to suggest malignancy in either breast. There has been no suspicious interval change. IMPRESSION: 1. No mammographic evidence of malignancy. 2. Recommend routine screening mammography in one year. BI-RADS Category 2: Benign finding(s). Reviewed, dictated and finalized at location B.
--- OUTSIDE RECORDS SUMMARY | 2025-04-01 16:32 | XMS_ITS | Encounter Summary ---
Author Organization [facility] Address [address] [facility] [place] [address] Care Team Providers Care Sports Journalist Name Role Phone Alexandre Wong MD Primary Care Provider [phone] Encounter Details Date Type Department Care Team (Late st Contact Info) Description 05/05/2022 Lab Requisition [facility] DermPath Lab [address] [facility], [facility] [place] [phone] Kylie Jamil MD [address] [facility] [address] [place] [address] Social History Tobacco Use Types Packs/Day Years [...] AM CDT) Case Report Dermatopathology Report Case: [id number] Authorizing Provider: Kylie Jamil MD Collected: 05/04/2022 12:00 AM Ordering Location: [facility] DermPath Lab Received: 05/05/2022 06:59 AM [...] specimen consists of a shave biopsy measuring [id number]. Jar 0. 4:22 PM CDT DERMATOPATHOLOGY LABORATORY [...] characteristic determined by the Dermatopathology Laboratory at [facility], directed by Dr. Cyndy Alva. These tests need not be, and therefore are not, approved by the [place] Food and Drug Administration. The tests are used for clinical purposes. Billing Codes Specimen Charges Stain Charges 68634 1 2 4:22 PM CDT DERMATOPATHOLOGY LABORATORY Embedded Images 4:22 PM CDT DERMATOPATHOLOGY LABORATORY Pathology/Cytolog y TISSUE SPECIMEN FROM SKIN / Unknown 05/04/2022 05/05/2022 6:59 AM CDT us Kylie Jamil MD LAB - PATHOLOGY/CYTOLOGY ORD ERABLES Final Result DERMATOPATHOLOGY LABORATORY [facility] - Department of Dermatology [facility] Medicine [address] [place] [address], [address] [phone] documented in this encounter Visit Diagnoses Not on filedocumented in this encounter Care Teams Sports Journalist Relationship Specialty Start Date End Date Alexandre Wong MD PCP - General 10/13/17 documented as of this encounter
--- OUTSIDE RECORDS SUMMARY | 2025-04-01 16:32 | XMS_ITS | Clinical Summary ---
Author Organization [facility] Address [address] [place] [address] Care Team Providers Care Tool Design Draftsperson Name Role Phone Alexandre Wong MD Primary Care Provider [phone] Source Comments [facility],non-owned Affiliates and Associated Physician Practices is amultiple site organization consisting of ambulatory clinics and hospital sitesin [place], [place], [place] and [place]. This disclosure is being madepursuant to the Care Everywhere program and may not contain all information available regarding this patient. Last updated 18.[facility] Social History Tobacco Use Types Packs/Day Years [...] 19+ 3-dose series) 1993 PAP SMEAR 11/20/1995 DEPRESSION SCREENING 07/04/2024 PNEUMOCOCCAL VACCINE 50+ (1 of 1 - PCV) 2024 ZOSTER VACCINE (1 of 2) 2024 COVID-19 VACCINE (1 - 2023-2 5 season) 2025 INFLUENZA VACCINE (#1) 2025 HIB VACCINE Aged [...] patient's age to complete this topic Insurance [facility] Care Teams Tool Design Draftsperson Relationship Specialty Start Date End Date Alexandre Wong MD PCP - General 10/13/17
== END 2025-04-01 15:43 | disposition home or self-care (01) ==
LOC: ANHFOHIMG 15:43
PROVIDERS: PCP Family Medicine; Visit Provider Family Medicine
DX: Z12.31 Encounter for screening mammogram for malignant neoplasm of breast (principal)
CPT/HCPCS: 77063; 77067